=== PATIENT | female | born 1955 | race Caucasian/White ===

== ENCOUNTER → 2019-08-09 | Outpatient (CLI) | payer OTHER ==
[~2019-08-09] MED LIST: IOHEXOL-350 50ML VIAL IV ONE
== END | disposition home or self-care (01) ==
LOC: RAH 13:15
PROVIDERS: ATTEND Internal Medicine
DX: K44.9 Diaphragmatic hernia without obstruction or gangrene (principal); R22.2 Localized swelling, mass and lump, trunk
CPT/HCPCS: 71260; Q9967

== ENCOUNTER → 2021-07-11 | Outpatient (CLI) | payer OTHER | END | disposition home or self-care (01) | LOC: RAH 09:18 | PROVIDERS: ATTEND Internal Medicine Gastroenterology | DX: K44.9 Diaphragmatic hernia without obstruction or gangrene (principal); K21.9 Gastro-esophageal reflux disease without esophagitis | CPT/HCPCS: 74240 ==

== ENCOUNTER 2022-01-30 08:30 | Observation (INO) | payer OTHER ==
[2022-01-25 12:46] LABS: BASOPHILS % (AUTO) 0.6 % (0.0-5.0); EOSINOPHILS % (AUTO) 2.8 % (0.0-8.0); LYMPHOCYTES % (AUTO) 25.6 % (21.0-51.0); MEAN CORPUSCULAR HEMOGLOBIN 28.3 pg (27.0-33.0); MEAN CORPUSCULAR HGB CONC 32.2 g/dL (32.0-36.0); MEAN CORPUSCULAR VOLUME 88.1 fL (79-99); MONOCYTES % (AUTO) 7.4 % (3.0-13.0); NEUTROPHILS % (AUTO) 63.4 % (40.0-77.0); PLATELET COUNT (AUTO) 337 K/uL (130-400); WHITE BLOOD COUNT (AUTO) 6.5 K/uL (4.8-10.8)
[2022-01-25 13:11] LABS: ALBUMIN 3.8 g/dL (3.5-5.0); CREATININE 0.6 mg/dL (0.5-1.5); POTASSIUM 4.6 mmol/L (3.5-5.1); TOTAL PROTEIN, SERUM 8.1 g/dL (6.0-8.3)
[2022-01-29 11:50] VITALS: BP 159/74
[~2022-01-30] VITALS: Ht 157.5 cm; Wt 61.7 kg
[2022-01-30] VITALS (24 sets, daily range): BP systolic 124–159; BP diastolic 72–97
[~2022-01-30 08:30] MED LIST changes: +BUPIVACAINE/PF 0.25% 30ML VIAL IJ ONE; +CEFAZOLIN SODIUM 1 GM VIAL IVP SCH; +ESCI20TA PO; +FAMO40TA7 PO; -IOHEXOL-350 50ML VIAL IV ONE; +LEVO50CA4 PO; +OMEP40CA21 PO; +PRED5DRO25 OP; +SUCR1TAB2 PO
[2022-01-30] MEDS ORDERED: CLINDAMYCIN IVPB 900MG/50ML 0 ML IV ONE (09:12)
[2022-01-30] MEDS ORDERED: LACTATED RINGERS 1000ML 1,000 ML IV ONE (09:13)
[2022-01-30] MEDS ORDERED: SUCCINYLCHOLINE CHLORIDE 20 MG/ML 10 ML VIAL ONE (11:08)
[2022-01-30] MEDS ORDERED: ROCURONIUM 10MG/1ML SYR 10 MG/ML ML ONE ×2 (11:09→12:36)
[2022-01-30] MEDS ORDERED: FENTANYL CITRATE PF 50 MCG/1 ML 2ML VIAL ONE (11:09)
[2022-01-30] MEDS ORDERED: MIDAZOLAM HCL 1 MG/ML 2ML VIAL ONE (11:09)
[2022-01-30] MEDS ORDERED: PROPOFOL 10 MG/ML 20ML VIAL IV ONE (11:09)
[2022-01-30] MEDS ORDERED: IOHEXOL 350 MG/ML 100ML INFUS..BTL IV ONE (12:16)
[2022-01-30] MEDS ORDERED: EPHEDRINE SULFATE 50 MG/ML AMPULE ONE (12:31)
[2022-01-30] MEDS ORDERED: PHENYLEPHRINE HCL 10 MG/ML 1ML VIAL IV ONE (12:33)
[2022-01-30] MEDS ORDERED: IOHEXOL-350 75 ML VIAL IV ONE (12:40)
[2022-01-30] MEDS ORDERED: HYDROCODONE/ACETAMINOPHEN 7.5/325 MG 15 ML UDCUP PO PRN (15:00)
[2022-01-30] MEDS ORDERED: PROCHLORPERAZINE 10MG/2ML INJ IV PRN (15:00)
[2022-01-30] MEDS ORDERED: MORPHINE 2 MG SYG IVP PRN (15:00)
[2022-01-30] MEDS ORDERED: ONDANSETRON 4MG INJ IVP PRN (15:00)
[2022-01-30] MEDS ORDERED: NEOSTIGMINE 5MG/5ML SYR IV ONE (15:04)
[2022-01-30] MEDS ORDERED: GLYCOPYRROLATE 1 MG/5 ML SYRINGE ONE (15:04)
[2022-01-30] MEDS ORDERED: MEPERIDINE-PF 25 MG/ML SYG ONE (15:41)
[2022-01-30] MEDS: 1/2NS+20MEQ KCL/1000ML 1,000 ML IV SCH ×2 (16:17→23:01)
[2022-01-30] MEDS: KETOROLAC 30MG VIAL (30MG/ML) IV PRN (23:01)
[2022-01-31 00:18] VITALS: BP 169/90
[2022-01-31 03:45] VITALS: BP 158/88
[2022-01-31 07:59] VITALS: BP 165/89
[2022-01-31] MEDS: KETOROLAC 30MG VIAL (30MG/ML) IV PRN ×2 (08:14→16:11)
[2022-01-31] MEDS: 1/2NS+20MEQ KCL/1000ML 1,000 ML IV SCH (08:15)
[2022-01-31] MEDS ORDERED: ENOXAPARIN SODIUM 30 MG/0.3 ML SQ SCH (09:00)
[2022-01-31 11:19] VITALS: BP 147/75
[2022-01-31] MEDS ORDERED: SIMETHICONE 40 MG/0.6 ML ML PO SCH (16:00)
== END 2022-01-31 16:41 | disposition home or self-care (01) ==
LOC: DAH 08:30 → INTOOBSV 08:31 → DAH 08:31 → DAHIP 08:31 → 4BH 16:05 → 4DH 16:28
PROVIDERS: ADMIT Surgery; ATTEND Surgery
DX: K44.0 Diaphragmatic hernia with obstruction, without gangrene (principal); Z20.822 Contact with and (suspected) exposure to COVID-19; K80.20 Calculus of gallbladder without cholecystitis without obstruction; K31.89 Other diseases of stomach and duodenum; F41.8 Other specified anxiety disorders; E03.9 Hypothyroidism, unspecified; Z79.899 Other long term (current) drug therapy
CPT/HCPCS: 80053; 85025; 86850 ×2; 86900 ×2; 86901 ×2; 87426; 36415 ×2; 47563; 43280; 96374; 82948 ×3; 74300; 43235; 96376; 96372; A4663; J7120 ×2; A4215 ×2; J3480; J3010; J0690; J3490 ×3; J2710; J0330; J2250; J2704; J1885 ×3; J2175; J2370; Q9967 ×2; G0168; A4649 ×3; A4930 ×2; C1781; A4223; A4222; A4221; J7030; A4600; G0378 ×2; J1650

== ENCOUNTER → 2022-05-21 | Outpatient (CLI) | payer OTHER ==
[~2022-05-21] MED LIST changes: -BUPIVACAINE/PF 0.25% 30ML VIAL IJ ONE; -CEFAZOLIN SODIUM 1 GM VIAL IVP SCH
== END | disposition home or self-care (01) ==
LOC: SHCH 12:58
PROVIDERS: ATTEND Internal Medicine Cardiovascular Disease
DX: I87.2 Venous insufficiency (chronic) (peripheral) (principal)
CPT/HCPCS: 93970

== ENCOUNTER → 2022-07-08 | Outpatient (CLI) | payer OTHER | END | disposition home or self-care (01) | LOC: SHCH 09:55 | PROVIDERS: ATTEND Internal Medicine Cardiovascular Disease | DX: I87.2 Venous insufficiency (chronic) (peripheral) (principal); Z98.890 Other specified postprocedural states | CPT/HCPCS: 93971 ==

== ENCOUNTER → 2022-07-29 | Outpatient (CLI) | payer OTHER | END | disposition home or self-care (01) | LOC: SHCH 08:40 | PROVIDERS: ATTEND Internal Medicine Cardiovascular Disease | DX: I87.2 Venous insufficiency (chronic) (peripheral) (principal); Z98.890 Other specified postprocedural states | CPT/HCPCS: 93971 ==

== ENCOUNTER 2023-07-23 14:56 | Emergency (ER) | payer OTHER ==
[~2023-07-23] VITALS: Ht 160 cm; Wt 61.2 kg
[2023-07-23] MEDS: MORPHINE 4 MG SYG IVP ONE (15:12)
[2023-07-23] MEDS: ONDANSETRON 4MG INJ IV ONE (15:12)
[2023-07-23] MEDS ORDERED: HYDR-4060 PO (17:14)
[2023-07-23 17:57] VITALS: BP 137/78; PULSE 78; RESP 18; O2SAT 98
== END 2023-07-23 17:58 | disposition home or self-care (01) ==
LOC: EDH 14:56
DX: S29.012A Strain of muscle and tendon of back wall of thorax, initial encounter (principal); E03.9 Hypothyroidism, unspecified; F32.A Depression, unspecified; Z88.1 Allergy status to other antibiotic agents; Z79.899 Other long term (current) drug therapy; Z90.49 Acquired absence of other specified parts of digestive tract; Z98.51 Tubal ligation status; V89.2XXA Person injured in unspecified motor-vehicle accident, traffic, initial encounter; Y93.I9 Activity, other involving external motion; Y92.89 Other specified places as the place of occurrence of the external cause; Y99.8 Other external cause status
CPT/HCPCS: 99285; 96374; 72128; 96375; 72072; 72050; J2405; J2270

== ENCOUNTER → 2023-07-30 | Outpatient (CLI) | payer OTHER ==
[~2023-07-30] MED LIST changes: +HYDR-4060 PO
== END | disposition home or self-care (01) ==
LOC: SHCH 12:47
PROVIDERS: ATTEND Internal Medicine Cardiovascular Disease
DX: I87.2 Venous insufficiency (chronic) (peripheral) (principal); I87.1 Compression of vein
CPT/HCPCS: 93970

== ENCOUNTER → 2023-08-18 | Outpatient (CLI) | payer OTHER ==
[~2023-08-18] MED LIST changes: +IOHEXOL-350 75 ML VIAL IV ONE
== END | disposition home or self-care (01) ==
LOC: RAH 11:12
PROVIDERS: ATTEND Internal Medicine
DX: K40.20 Bilateral inguinal hernia, without obstruction or gangrene, not specified as recurrent (principal); K44.9 Diaphragmatic hernia without obstruction or gangrene; M47.815 Spondylosis without myelopathy or radiculopathy, thoracolumbar region; I70.90 Unspecified atherosclerosis; R10.11 Right upper quadrant pain; R16.0 Hepatomegaly, not elsewhere classified; Z90.49 Acquired absence of other specified parts of digestive tract
CPT/HCPCS: 74177; Q9967

== ENCOUNTER → 2023-08-25 | Outpatient (CLI) | payer OTHER ==
[~2023-08-25] MED LIST changes: -IOHEXOL-350 75 ML VIAL IV ONE
== END | disposition home or self-care (01) ==
LOC: RAH 10:20
PROVIDERS: ATTEND Internal Medicine
DX: R93.429 Abnormal radiologic findings on diagnostic imaging of unspecified kidney (principal); Z90.49 Acquired absence of other specified parts of digestive tract
CPT/HCPCS: 76700